=== PATIENT | female | born 1985 | race Caucasian/White ===

== ENCOUNTER 2018-03-07 12:42 | Emergency (ER) | payer MEDICAID ==
[2018-03-07] MEDS: DIPHTH/TET/ACEL PERTUSS (ADULT) 0.5 ML VIAL IM* (15:55)
== END 2018-03-07 16:35 | disposition home or self-care (01) ==
LOC: FTE 12:42
DX: T25.121A Burn of first degree of right foot, initial encounter (principal); F17.210 Nicotine dependence, cigarettes, uncomplicated; X18.XXXA Contact with other hot metals, initial encounter; Y92.9 Unspecified place or not applicable; Z23 Encounter for immunization
CPT/HCPCS: 81025; 90471; 90715; 99284-25